=== PATIENT | female | born 1955 | race Caucasian/White ===

== ENCOUNTER 2017-04-09 05:13 | Inpatient (IN) ==
--- NOTE | 2017-04-01 10:09 | EKG Report ---
Test Performed on : 04/01/2017 10:04:58 AM Test Reason : order Blood Pressure : / mmHG Vent. Rate : 073 BPM Atrial Rate : 073 BPM P-R Int : 152 ms QRS Dur : 098 ms QT Int : 426 ms P-R-T Axes : 028 004 116 degrees QTc Int : 469 ms Normal sinus rhythm. Nonspecific T wave abnormality Abnormal ECG When compared with ECG of 03-FEB-2017 15:17, ST more elevated in V2 Nonspecific ST depression far lateral leads Confirmed by Zhen Vieira DO ([id number]) on 04/01/2017 6:40:06 PM
[2017-04-01 10:33] LABS: MANUAL DIFF NEEDED? NO; URINE MICRO REVIEW NEEDED? NO; URINE SOURCE CLEAN CATCH
[2017-04-01 10:47] LABS: BILIRUBIN URINE NEGATIVE (NEGATIVE); BLOOD URINE NEGATIVE (NEGATIVE); COLOR YELLOW; GLUCOSE URINE NEGATIVE (NEGATIVE); LEUKOCYTES URINE NEGATIVE (NEGATIVE); NITRITE URINE NEGATIVE (NEGATIVE); PROTEIN URINE NEGATIVE (NEGATIVE); SP GRAVITY URINE 1.007; TURBIDITY URINE CLEAR (CLEAR); UR EPITHELIAL CELLS <10 /HPF (<10); URINE BACTERIA NEGATIVE /HPF; URINE RBC <10 /HPF (<10); URINE WBC <10 /HPF (<10); UROBILINOGEN URINE NORMAL (NORMAL)
[2017-04-01 10:49] LABS: BASO% 0.4 % (0.0-0.8); EOS# 0.37 X1000 (0.0-0.7); EOS% 4.8 % (0.0-10.0); HEMATOCRIT 38.9 % (37.0-47.0); HEMOGLOBIN 12.7 g/dL (12.0-16.0); IMM GRAN# 0.02 X1000 (0.0-0.04); IMM GRAN% 0.3 % (0.0-0.5); LYMPH# 2.19 X1000 (1.2-3.4); LYMPH% 28.3 % (20.5-51.1); MCH 27.7 PG (27-31); MCHC 32.6 g/dL (33-37); MCV 84.7 FL (81-99); MONO# 0.55 X1000 (0.11-0.59); MONO% 7.1 % (1.7-9.3); MPV 9.5 FL (7.4-10.4); NEUT% 59.1 % (42.2-75.2); PLT 303 X1000 (130-400); RBC 4.59 XMIL (4.2-5.4)
[2017-04-01 10:54] LABS: INR 0.96; PROTIME 10.1 Seconds (9.2-11.7); PTT 33.2 Seconds (22.0-36.0)
[2017-04-01 11:18] LABS: AGAP 11; BUN 16 mg/dL (8-22); CALCIUM 9.7 mg/dL (8.8-10.2); CHLORIDE 100 mmol/L (98-107); COSMO 281; POTASSIUM 4.9 mmol/L (3.5-5.1); SODIUM 140 mmol/L (136-145); TCO2 29 mmol/L (25-35)
[2017-04-09] MEDS ORDERED: VENTOLIN HFA INH PRN (07:03)
[2017-04-09] MEDS ORDERED: PEPCID ONE (07:09)
[2017-04-09] MEDS ORDERED: COLACE ONE (07:09)
[2017-04-09] MEDS ORDERED: REGLAN ONE (07:09)
[2017-04-09] MEDS ORDERED: KEFZOL 2 GM/D5W 2 GM/50 ML IVPB ONE (07:10)
[2017-04-09] MEDS ORDERED: LR 1,000 ML ONE (07:10)
[2017-04-09] MEDS ORDERED: LYRICA ONE (07:10)
[2017-04-09] MEDS ORDERED: CELEBREX ONE (07:10)
[2017-04-09] MEDS ORDERED: LASIX PO SCH (07:15)
[2017-04-09] MEDS ORDERED: COREG ONE (07:21)
[2017-04-09] MEDS ORDERED: VERSED ONE (08:43)
[2017-04-09] MEDS ORDERED: DIPRIVAN 1% ONE (08:43)
[2017-04-09] MEDS ORDERED: FENTANYL ONE (08:43)
[2017-04-09] MEDS ORDERED: OFIRMEV 1000 MG/ISOTONIC SOLN 1,000 MG/100 ML BOTTLE ONE (08:45)
[2017-04-09] MEDS ORDERED: ZOFRAN ONE (08:45)
[2017-04-09] MEDS ORDERED: XYLOCAINE-MPF 2% ONE (08:45)
[2017-04-09] MEDS ORDERED: ROBINUL ONE ×2 (08:45→10:12)
[2017-04-09] MEDS ORDERED: QUELICIN (DOSE) ONE ×2 (08:45→10:12)
[2017-04-09] MEDS ORDERED: NORCURON ONE (08:45)
[2017-04-09] MEDS ORDERED: TORADOL ONE ×2 (08:45→08:46)
[2017-04-09] MEDS ORDERED: DURAMORPH ONE (08:46)
[2017-04-09] MEDS ORDERED: SODIUM CHLORIDE 0.9% ONE (08:47)
[2017-04-09] MEDS ORDERED: SENSORCAINE 0.25%/EPI 1:200,000 ONE (08:47)
[2017-04-09] MEDS ORDERED: NEOSPORIN G.U. IRRIGANT ONE (08:47)
[2017-04-09] MEDS ORDERED: CYKLOKAPRON 1,000 MG/NS 1,000 MG/100 ML IVPB ONE (08:47)
[2017-04-09] MEDS ORDERED: EXPAREL 1.3% ONE (08:47)
[2017-04-09] MEDS ORDERED: POTASSIUM PO SCH (09:00)
[2017-04-09] MEDS ORDERED: NEOSTIGMINE ONE (10:13)
[2017-04-09] MEDS ORDERED: STERILE WATER INJ. ONE (10:29)
[2017-04-09] MEDS ORDERED: NEO-SYNEPHRINE ONE (10:29)
[2017-04-09 10:34] LABS: BILIRUBIN URINE NEGATIVE (NEGATIVE); BLOOD URINE NEGATIVE (NEGATIVE); COLOR YELLOW; GLUCOSE URINE NEGATIVE (NEGATIVE); LEUKOCYTES URINE NEGATIVE (NEGATIVE); NITRITE URINE NEGATIVE (NEGATIVE); PH URINE 5.5; PROTEIN URINE 50 mg/dL (NEGATIVE); SP GRAVITY URINE 1.029; TURBIDITY URINE HAZY (CLEAR); URINE CULTURE NEEDED? NO; URINE SOURCE CATH; UROBILINOGEN URINE 3 mg/dL (NORMAL)
[2017-04-09 10:35] LABS: URINE MICRO REVIEW NEEDED? YES
[2017-04-09 10:40] LABS: UR EPITHELIAL CELLS <10 /HPF (<10); URINE BACTERIA NEGATIVE /HPF; URINE RBC <10 /HPF (<10); URINE WBC <10 /HPF (<10)
[2017-04-09 10:52] LABS: URINE CASTS NONE SEEN
[2017-04-09] MEDS ORDERED: NS 1,000 ML ONE (11:31)
[2017-04-09] MEDS: MORPHINE ONE ×3 (11:33→11:43)
[2017-04-09] MEDS ORDERED: MORPHINE ONE (11:43)
[2017-04-09] MEDS ORDERED: PHENERGAN ONE (11:49)
--- NOTE | 2017-04-09 12:03 | OPERATIVE NOTE ---
PROCEDURE DATE: 04/09/2017 PREOPERATIVE DIAGNOSIS: Right glenohumeral arthritis with chronic rotator cuff tear. POSTOPERATIVE DIAGNOSIS: Right glenohumeral arthritis with chronic rotator cuff tear. PROCEDURE: Right reverse shoulder arthroplasty with DePuy Delta XTEND size 12, press-fit stem, with a 42+ 3 humeral cup, a 43 eccentric glenosphere and a standard metaglene. SURGEON: Dr. Sher Melo. FL[employer] LINE SERVICE ATTENDANT: FERNANDO Carolina. [employer] PROGRAM DIRECTOR: Cullen Chow RN. ANESTHESIA: General. IV FLUIDS: 1700 mL lactated Ringer's. ESTIMATED BLOOD LOSS: 100 mL. COMPLICATIONS: None. INDICATION: The patient is a 61-year-old female with chronic history of pain and discomfort in the right shoulder. She has had continued pain and discomfort despite appropriate nonoperative treatment. X-rays and MRI were obtained and revealed findings consistent with chronic rotator cuff tear with significant retraction and some evidence of degenerative changes. Recommendation to proceed with right reverse total shoulder arthroplasty was offered. Risks and benefits of surgery were explained including the risk of anesthesia, , bleeding, infection, failure to relieve pain, postoperative stiffness, nerve injury, blood clots, and other imponderables. All questions were answered. Patient and family wished to proceed with surgery. DETAILS OF OPERATION: The patient was taken to the operating room and placed supine on the operating table. Once adequate anesthesia was obtained, the patient was placed in semi-Harley beach-chair position. The right shoulder was subsequently prepped and draped in the usual sterile fashion. A standard deltopectoral incision was made with a skin knife. Hemostasis was obtained using electrocautery. The deltopectoral interval was then developed. Retractors were then placed. The clavipectoral fascia along with the conjoined tendon was then developed as well and deep Lo retractor was placed. Attention turned to the subscapularis approximately 1 cm medial to its insertion. It was released. A stay suture was placed. The humeral head was then dislocated anteriorly. A starting reamer was then passed in the intramedullary canal. Sequential reaming was conducted up to size 12. Intramedullary guide was then placed in position. Proximal humeral head was then resected. A protective disk was then placed. Retractor was then placed. Circumferential dissection was then performed with a deep knife. A guide was then placed on the glenoid and the guidepin was placed. Reaming was then conducted. A standard metaglene was then impacted in position. Three locking screws and 1 nonlocking screw was placed. It appeared to have good fixation. The wound was copiously once again. A 42 eccentric glenosphere was then placed eccentricity placed inferiorly. It had good purchase. Attention was then turned to the proximal humerus. The intramedullary guide was then placed. The proximal humerus was reamed. After this had been performed, the intramedullary canal was copiously irrigated. A size 12 press-fit stem was impacted in position and had good fit. Trial cup was then placed and 42+ 3 cup had excellent stability and range of motion. The trial cup was then removed. Copious irrigation was then performed once again with antibiotic pulsatile lavage. A 42 eccentric glenosphere was then impacted on the stem. This was followed by the shoulder was reduced and carried through range of motion and had excellent stability and range of motion. Exparel was placed in deep soft tissue. The wound was copiously irrigated once again. The subscapularis tendon was then repaired with #2 FiberWire. There appeared to be good repair. Irrigation was then conducted once again. Exparel was placed in the subcutaneous tissue. 2-0 Vicryl was then used to repair the subcutaneous tissue followed by running 2-0 Prolene. Benzoin and Steri-Strips were applied. Adaptic, sterile 4x4s, ABD pad and tape was applied to the right shoulder, followed by shoulder immobilizer. All counts were correct. Patient tolerated the procedure well and was transferred to the recovery room in stable condition. cc: Sher Melo MD
--- NOTE | 2017-04-09 13:11 | Diag Imaging Result Doc PS360 ---
SHOULDER 1 VIEW RIGHT - 04/09/2017 INDICATION: right TSA TECHNIQUE: COMPARISON: None FINDINGS: There is a right total shoulder arthroplasty. Alignment is anatomic. No hardware fracture or loosening. IMPRESSION: No complication. Electronically signed by Gus Guzman 04/09/2017 1:09 PM
[2017-04-09] MEDS ORDERED: ZOFRAN PO PRN (13:15)
[2017-04-09] MEDS ORDERED: MILK OF MAGNESIA PO PRN (13:15)
[2017-04-09] MEDS: MORPHINE IV PRN (13:59)
[2017-04-09] MEDS ORDERED: REQUIP PO SCH (14:00)
[2017-04-09] MEDS ORDERED: CYKLOKAPRON 1,000 MG in NS 100 ML IV ONE (15:00)
[2017-04-09] MEDS: ASPIRIN PO SCH (15:42)
[2017-04-09] MEDS: TYLENOL PO SCH ×2 (15:55→20:14)
[2017-04-09] MEDS: FLONASE NAS SCH (17:33)
[2017-04-09] MEDS: COZAAR PO SCH (17:35)
[2017-04-09] MEDS: FOLIC ACID PO SCH (17:35)
[2017-04-09] MEDS: CELEXA PO SCH (17:36)
[2017-04-09] MEDS: IMODIUM PO SCH (17:54)
[2017-04-09] MEDS: KEFZOL 2 GM/D5W 2 GM/50 ML IVPB IV SCH (17:55)
[2017-04-09] MEDS: NS 1,000 ML IV SCH ×2 (17:55→20:15)
[2017-04-09] MEDS: PATIENT'S OWN MED PO SCH (17:56)
[2017-04-09] MEDS: ELAVIL PO SCH (20:14)
[2017-04-09] MEDS: COREG PO SCH (20:14)
[2017-04-09] MEDS: PERIDEX MT SCH (20:14)
[2017-04-09] MEDS ORDERED: PRAVACHOL PO SCH (21:00)
[2017-04-09] MEDS: OXY IR PO PRN ×2 (23:10→23:48)
[2017-04-10] MEDS: KEFZOL 2 GM/D5W 2 GM/50 ML IVPB IV SCH (01:01)
[2017-04-10] MEDS: MORPHINE IV PRN (01:23)
[2017-04-10] MEDS ORDERED: CHLORASEPTIC SORE THROAT LOZENGE MT PRN (03:24)
[2017-04-10] MEDS: TYLENOL PO SCH ×2 (03:29→10:13)
[2017-04-10] MEDS: NS 1,000 ML IV SCH (04:40)
[2017-04-10] MEDS: ELAVIL PO SCH (04:42)
[2017-04-10 05:52] LABS: HEMATOCRIT 33.5 % (37.0-47.0); HEMOGLOBIN 10.8 g/dL (12.0-16.0)
[2017-04-10 06:02] LABS: AGAP 13; BUN 11 mg/dL (8-22); CALCIUM 8.4 mg/dL (8.8-10.2); CHLORIDE 104 mmol/L (98-107); COSMO 280; POTASSIUM 4.7 mmol/L (3.5-5.1); SODIUM 140 mmol/L (136-145); TCO2 23 mmol/L (25-35)
--- NOTE | 2017-04-10 07:15 | PROGRESS NOTE ---
DATE: 04/10/2017 SUBJECTIVE: The patient is a pleasant, 61-year-old female who is 1 day status post right reverse total shoulder arthroplasty. She is currently resting comfortably and has no complaints this morning. OBJECTIVE: The patient's right upper extremity dressing is intact. She is neurovascularly intact distally. She has good straw boss strength, has good range of motion of her elbow. LABORATORY DATA: Her hemoglobin is 10.8, hematocrit is 33.5. IMPRESSION: Postoperative day #1 status post right reverse total shoulder arthroplasty. PLAN: At this point, will change her dressing, discontinue her drain, and Hep-Lock her IV. Plan on discharging home. The patient will proceed with outpatient physical therapy. She will follow up in the office on 04/22/2017. cc: Sher Melo MD
[2017-04-10 07:53] VITALS: BP 133/59
[2017-04-10] MEDS: OXY IR PO PRN (08:38)
[2017-04-10] MEDS ORDERED: PEPCID PO SCH (09:00)
[2017-04-10] MEDS: FLONASE NAS SCH (10:12)
[2017-04-10] MEDS: CELEXA PO SCH (10:12)
[2017-04-10] MEDS: IMODIUM PO SCH (10:13)
[2017-04-10] MEDS: COZAAR PO SCH (10:13)
[2017-04-10] MEDS: ASPIRIN PO SCH (10:13)
[2017-04-10] MEDS: FOLIC ACID PO SCH (10:13)
[2017-04-10] MEDS: COREG PO SCH (10:13)
[2017-04-10] MEDS: PERIDEX MT SCH (10:19)
[2017-04-10] MEDS: PATIENT'S OWN MED PO SCH (10:20)
[2017-04-10] MEDS ORDERED: REQUIP PO SCH (21:00)
== END 2017-04-10 12:57 | disposition home or self-care (01) ==
LOC: SURHOLD 05:13 → 4N 12:42
PROVIDERS: ADMIT Orthopaedic Surgery Adult Reconstructive Orthopaedic Surgery; ATTEND Orthopaedic Surgery Adult Reconstructive Orthopaedic Surgery